=== PATIENT | female | born 1995 | race Caucasian/White ===

== ENCOUNTER 2016-11-28 15:38 | Emergency (ER) | payer BC ==
--- NOTE | 2016-11-28 19:04 | ED ---
Lower Extremity - HPI Summary HPI Summary: 21 female presents with complaints of left ankle pain after twisting and falling while walking at the dog park just prior to arrival. Patient states she was walking and not paying attention when a big husky/lab dog ran into the back of her legs, taking her legs out from under her. Patient at this times twisted her ankle and fell backwards onto her bottom/back. Fall was witnessed by her friend. Did not hit her head and no LOC. Patient denies any other pain or injury besides her left ankle. She was able to bear weight and walk. She has some ROM. Denies knee, back hip and neck pain. Patient denies vision changes, headache, abdominal pain and nausea/vomiting. No c/p, SOB. No PMHx. Admits to some swelling and bruising of left ankle. Describes pain and throbbing and aching. Denies numbness/tingling. - History of Current Complaint Chief Complaint: EDExtremityLower Stated Complaint: LEFT ANKLE PAIN Hx Obtained From: Patient Mechanism Of Injury: Fall From A Standing Position, Twisted Onset of Pain: Immediate, Post Accident Onset/Duration: Hours Severity Initially: Moderate Severity Currently: Moderate Pain Intensity: 7 Pain Scale Used: 0-10 Numeric Timing: Constant Location: Is Discrete @ - left ankle Character Of Pain: Sharp, Aching, Throbbing Associated Signs And Symptoms: Positive: Swelling, Bruising Aggravating Factor(s): Standing, Ambulation Alleviating Factor(s): Rest Able to Bear Weight: Yes - Allergies/Home Medications Allergies/Adverse Reactions: Allergies Allergy/AdvReac Type Severity Reaction Status Date / Time No Known Allergies Allergy Verified 10/13/14 06:00 PMH/Surg Hx/FS Hx/Imm Hx Endocrine/Hematology History: Denies: Hx Anticoagulant Therapy, Hx Diabetes Cardiovascular History: Denies: Hx Hypertension Respiratory History: Reports: Hx Asthma - Surgical History Surgery Procedure, Year, and Place: none - Immunization History Immunizations Up to Date: Yes Infectious Disease History: Denies: Traveled Outside the [place] in Last 30 Days - Family History Known Family History: Positive: Other - both sisters: cystic ovaries - Social History Alcohol Use: None Hx Substance Use: No Substance Use Type: Reports: None Hx Tobacco Use: No Smoking Status (MU): Never Smoked Tobacco Review of Systems Constitutional: Negative Eyes: Negative ENT: Negative Cardiovascular: Negative Respiratory: Negative Gastrointestinal: Negative Positive: Arthralgia, Myalgia, Decreased ROM, Edema - left ankle Positive: Bruising - left ankle Neurological: Negative Psychological: Normal All Other Systems Reviewed And Are Negative: Yes Physical Exam Triage Information Reviewed: Yes Vital Signs On Initial Exam: Initial Vitals Temp Pulse Resp BP Pulse Ox 98.6 F 68 18 107/67 99 11/28/16 15:44 11/28/16 15:44 11/28/16 15:44 11/28/16 15:44 11/28/16 15:44 Vital Signs Reviewed: Yes Appearance: Positive: Well-Appearing, Well-Nourished, Pain Distress - mild, sitting with ankle elevated with ice pack applied. Skin: Positive: Warm, Dry, Other - mnimal edema noted at left ankle when compared to right. minimal ecchymosis. no open wounds. Head/Face: Positive: Normal Head/Face Inspection. Negative: Scalp, Cephalohematoma Eyes: Positive: Normal, EOMI, SCOTTY, Conjunctiva Clear ENT: Positive: Normal ENT inspection, Hearing grossly normal Neck: Positive: Supple, Nontender Respiratory/Lung Sounds: Positive: Clear to Auscultation, Breath Sounds Present. Negative: Rales, Rhonchi, Wheezes Cardiovascular: Positive: Normal, RRR, Pulses are Symmetrical in both Upper and Lower Extremities - 2+ pedal b/l and radial. Negative: Murmur, Tachycardia, Leg Edema Left, Leg Edema Right Abdomen Description: Positive: Nontender, Soft Bowel Sounds: Positive: Present Musculoskeletal: Positive: Normal, Limited @ - strength and ROM with all directions due to pain, is able to move toes, and has some ROM flexion, extension, and internal/external rotation., Pain @ - left ankle, most on lateral ankle over ATFL on palpation and with movement., Edema Left - minimal of left ankle when compared to right ankle, Other - no crepitus, step off or obvious deformity noted.. Negative: Interruption @, Rome Sign Left, Rome Sign Right, Edema Right Neurological: Positive: Normal, Sensory/Motor Intact - sensation intact and normal, Alert, Oriented to Person Place, Time, Reflexes Intact, NV Bundle Intact Distally, Unable to Assess Gait - due to pain and injury Psychiatric: Positive: Normal AVPU Assessment: Alert - Maryjane Coma Scale Best Eye Response: 4 - Spontaneous Best Motor Response: 6 - Obeys Commands Best Verbal Response: 5 - Oriented Diagnostics - Vital Signs Vital Signs Temp Pulse Resp BP Pulse Ox 11/28/16 15:47 98.6 F 73 18 107/67 99 11/28/16 15:44 98.6 F 68 18 107/67 99 - Laboratory Lab Statement: Any lab studies that have been ordered have been reviewed, and results considered in the medical decision making process. - Radiology left ankle Xray Interpretation: No Acute Changes - NO RADIOGRAPHICALLY APPARENT FRACTURE OR DISLOCATION. If the patient's symptoms persist, follow-up imaging is recommended. Radiology Interpretation Completed By: Radiologist Re-Evaluation - Re-Evaluation First Eval Re-Evaluation Time: 19:33 Change: Improved - patient had some relief after ice, rest and naproxen Lower Extremity Course/Dx - Course Course Of Treatment: given naproxen while in ED for pain and inflammation. X- ray of left ankle obtained and negative for fracture or dislocation. Ice applied. Appears to have suffered a left ankle sprain. Given brace and crutches. Do not bear weight until symptoms improved and second evalution. Apply ice and continue naproxen. Follow up with PCP. Aware of worsening signs and symptoms - Diagnoses Differential Diagnosis/HQI/PQRI: Positive: Cellulitis, Contusion, Dislocation, Fracture (Closed), Sprain, Strain Provider Diagnoses: Left ankle sprain Discharge - Discharge Plan Condition: Stable Disposition: HOME Prescriptions: Naproxen TAB* [Naprosyn 375 mg TAB*] 375 mg PO BID #30 tab Patient Education Materials: Ankle Sprain (ED) Referrals: Non Staff,Doctor [Primary Care Provider] - Additional Instructions: Take prescribed medication as directed for pain and inflammation. Do not bear weight until symptoms improved and follow up with PCP. Wear brace and use crutches. Ice and elevate the ankle multiple times daily, 20 minutes on and 20 minutes off. Follow up with PCP within 2 weeks. If symptoms worsen or new symptoms develop please return or seek medical attention promptly.
[2016-11-28] MEDS ORDERED: Naproxen TAB* 250 MG PO ONE (19:06)
--- NOTE | 2016-11-28 19:30 | RAD ---
INDICATION: Left ankle pain after injury at the dog park COMPARISON: None. TECHNIQUE: 3 views of the left ankle were obtained. FINDINGS: The well corticated bones exhibit normal alignment. Joint spaces appear maintained. No fracture is seen. Well-circumscribed bony focus just posterior to the talocalcaneal joint could represent an os trigonum in the correct clinical setting. IMPRESSION: NO RADIOGRAPHICALLY APPARENT FRACTURE OR DISLOCATION. If the patient's symptoms persist, follow-up imaging is recommended.
[2016-11-28 20:27] VITALS: BP 120/52
== END 2016-11-28 19:39 | disposition home or self-care (01) ==
LOC: ED 15:38
DX: S93.402A Sprain of unspecified ligament of left ankle, initial encounter (principal); W19.XXXA Unspecified fall, initial encounter; Y92.830 Public park as the place of occurrence of the external cause; J45.909 Unspecified asthma, uncomplicated
CPT/HCPCS: 99282; A9270-GY

== ENCOUNTER 2017-07-22 13:33 | Emergency (ER) | payer SELFPAY ==
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
[2017-07-22] MEDS ORDERED: Ibuprofen TAB* 600 MG PO ONE (16:04)
[2017-07-22] MEDS ORDERED: Cyclobenzaprine TAB* 10 MG PO ONE (16:05)
[2017-07-22 16:22] VITALS: BP 106/54
== END 2017-07-22 16:20 | disposition home or self-care (01) ==
LOC: ED 13:33
DX: S06.0X0A Concussion without loss of consciousness, initial encounter (principal); S16.1XXA Strain of muscle, fascia and tendon at neck level, initial encounter; V43.52XA Car driver injured in collision with other type car in traffic accident, initial encounter; Y92.410 Unspecified street and highway as the place of occurrence of the external cause
CPT/HCPCS: 70450; 72125; 99282; A9270-GY

== ENCOUNTER 2018-07-30 20:40 | Emergency (ER) | payer OTHER ==
[2018-07-30 20:55] VITALS: BP 117/80
--- NOTE | 2018-07-30 22:12 | UC ---
Nausea/Vomiting/Diarrhea HPI - HPI Summary HPI Summary: 3 DAYS OF CRAMPY ABDOMINAL PAIN WITH COPIOUS WATERY DIARRHEA. EPISODES AT LEAST 10 TIMES DAILY. HAS HAD 2 EPISODES OF EMESIS. 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 - History of Current Complaint Chief Complaint: UCAbdominalPain Stated Complaint: ABDOMINAL PAIN, VOMITING AND DIARRHEA Time Seen by Provider: 07/30/18 21:41 Hx Obtained From: Patient Hx Last Menstrual Period: 2 wks ago Onset/Duration: Sudden Onset, Lasting Days, Still Present Timing: Constant Severity Initially: Moderate Severity Currently: Moderate Pain Intensity: 7 Pain Scale Used: 0-10 Numeric Location: Diffuse Character: Cramping Aggravating Factor(s): Food Alleviating Factor(s): Nothing Nausea/Vomiting Presence: Vomiting Diarrhea Presence: Yes Diarrhea Frequency: Every 1-2 hours Diarrhea Duration: 2-3 days Diarrhea Characteristics: Watery - Allergies/Home Medications Allergies/Adverse Reactions: Allergies Allergy/AdvReac Type Severity Reaction Status Date / Time No Known Allergies Allergy Verified 07/30/18 20:56 PMH/Surg Hx/FS Hx/Imm Hx Previously Healthy: Yes Other History Of: Negative For: Anticoagulant Therapy - Surgical History Surgical History: None Surgery Procedure, Year, and Place: none - Family History Known Family History: Positive: Other - both sisters: cystic ovaries - Social History Alcohol Use: Occasionally Substance Use Type: None Smoking Status (MU): Never Smoked Tobacco Review of Systems All Other Systems Reviewed And Are Negative: Yes Constitutional: Positive: Fatigue Respiratory: Positive: Negative Cardiovascular: Positive: Negative Gastrointestinal: Positive: Abdominal Pain, Vomiting, Diarrhea Physical Exam Triage Information Reviewed: Yes Appearance: No Pain Distress, Well-Nourished, Ill-Appearing - FATIGUED Vital Signs: Initial Vital Signs Temp 98.9 F 07/30/18 20:53 Pulse 80 07/30/18 20:53 Resp 18 07/30/18 20:53 BP 117/80 07/30/18 20:53 Pulse Ox 98 07/30/18 20:53 Vital Signs Reviewed: Yes Eyes: Positive: Conjunctiva Clear ENT: Positive: Hearing grossly normal Neck: Positive: Supple Respiratory Exam: Normal Cardiovascular Exam: Normal Abdomen Description: Positive: Soft, Other: - DIFFUSELY TENDER. NO REBOUND OR RIGIDITY. Negative: Distended, Guarding Bowel Sounds: Positive: Present Musculoskeletal: Positive: No Edema Neurological: Positive: Alert Psychological: Positive: Age Appropriate Behavior Skin: Negative: Rashes Naus/Vom/Diarrhea Course/Dx - Course Course Of Treatment: PATIENT LIKELY WITH CRYPTOSPORIDIUM GIVEN SEVERAL OF HER CLASSMATES HAVE BEEN DIAGNOSED WITH THIS CONDITION. ADVISED THAT THIS IS GENERALLY A SELF-LIMITED CONDITION AND THAT SHE SHOULD IMPROVE SPONTANEOUSLY OVER THE NEXT FEW WEEKS LONG SHE CAN STAY WELL-HYDRATED. PATIENT HAS REQUESTED A PRESCRIPTION FOR NITAZOXANIDE WHICH I PROVIDED TODAY. I HAVE ENCOURAGED HER NOT TO FILL HIS PRESCRIPTION UNTIL SHE IS SURE SHE IS NOT IMPROVING ON HER OWN. ADVISED TO GO TO THE ER IF SHE IS UNABLE TO TOLERATE FLUIDS OR IS FEELING WORSE. STOOL SENT FOR TESTING. - Differential Dx/Diagnosis Provider Diagnosis: Acute diarrhea Condition At Discharge: Stable Discharge - Sign-Out/Discharge Documenting (check all that apply): Patient Departure All imaging exams completed and their final reports reviewed: No Studies - Discharge Plan Condition: Stable Disposition: HOME Prescriptions: Nitazoxanide [Alinia] 500 mg PO BID #6 tablet Patient Education Materials: Acute Diarrhea (ED) Referrals: No Primary Care Phys,NOPCP [Primary Care Provider] - Additional Instructions: GIVEN YOUR SYMPTOMS AND KNOWN EXPOSURE TO CRYPTOSPORIDIUM THIS IS LIKELY YOUR DIAGNOSIS. YOUR STOOL HAS BEEN SENT FOR TESTING TODAY. CRYPTOSPORIDIUM IS USUALLY A SELF-LIMITED CONDITION AND YOUR SYMPTOMS SHOULD IMPROVE ON THEIR OWN OVER THE NEXT DAYS TO SEVERAL WEEKS. LONG YOU ARE ABLE TO STAY HYDRATED NO ACUTE INTERVENTION IS INDICATED. IF YOU'RE UNABLE TO TOLERATE FLUIDS YOU MAY NEED IV SUPPLEMENTATION. I WOULD RECOMMEND GOING TO THE EMERGENCY ROOM IF YOU ARE WORSENING. YOUR STOOL HAS BEEN SENT FOR TESTING PER YOUR REQUEST ALTHOUGH I RECOMMEND HOLDING OFF ON THIS UNTIL YOU KNOW YOU'RE NOT IMPROVING SPONTANEOUSLY. THIS MEDICATION IS OFTEN NOT COVERED BY INSURANCE. CLEAR LIQUIDS, BLAND DIET. AVOID CAFFEINE, DAIRY, GREASY, SPICY FOODS. ONCE YOU ARE TOLERATING CLEAR LIQUIDS YOU CAN ADVANCE TO SIMPLE, BLAND FOODS. YOU CAN TRY OTC LOPERAMIDE TO HELP WITH SYMPTOMS. - Billing Disposition and Condition Condition: STABLE Disposition: Home
--- NOTE | 2018-07-31 16:10 | UC ---
- Progress Note Progress Note: 07/31/2018 Stool culture final resport still pending, Giardia/cryptospordium pending. Fecal Lacoferrin positive Pt on Nitazoxanide prophylactically cince exposure to cryptosporidium. No change Merari Lobato PA-C Course/Dx - Diagnoses Provider Diagnoses: Acute diarrhea Discharge - Sign-Out/Discharge Documenting (check all that apply): Patient Departure - D/C home All imaging exams completed and their final reports reviewed: No Studies - Discharge Plan Condition: Stable Disposition: HOME Prescriptions: Nitazoxanide [Alinia] 500 mg PO BID #6 tablet Patient Education Materials: Acute Diarrhea (ED) Referrals: No Primary Care Phys,NOPCP [Primary Care Provider] - Additional Instructions: GIVEN YOUR SYMPTOMS AND KNOWN EXPOSURE TO CRYPTOSPORIDIUM THIS IS LIKELY YOUR DIAGNOSIS. YOUR STOOL HAS BEEN SENT FOR TESTING TODAY. CRYPTOSPORIDIUM IS USUALLY A SELF-LIMITED CONDITION AND YOUR SYMPTOMS SHOULD IMPROVE ON THEIR OWN OVER THE NEXT DAYS TO SEVERAL WEEKS. LONG YOU ARE ABLE TO STAY HYDRATED NO ACUTE INTERVENTION IS INDICATED. IF YOU'RE UNABLE TO TOLERATE FLUIDS YOU MAY NEED IV SUPPLEMENTATION. I WOULD RECOMMEND GOING TO THE EMERGENCY ROOM IF YOU ARE WORSENING. YOUR STOOL HAS BEEN SENT FOR TESTING PER YOUR REQUEST ALTHOUGH I RECOMMEND HOLDING OFF ON THIS UNTIL YOU KNOW YOU'RE NOT IMPROVING SPONTANEOUSLY. THIS MEDICATION IS OFTEN NOT COVERED BY INSURANCE. CLEAR LIQUIDS, BLAND DIET. AVOID CAFFEINE, DAIRY, GREASY, SPICY FOODS. ONCE YOU ARE TOLERATING CLEAR LIQUIDS YOU CAN ADVANCE TO SIMPLE, BLAND FOODS. YOU CAN TRY OTC LOPERAMIDE TO HELP WITH SYMPTOMS. - Billing Disposition and Condition Condition: STABLE Disposition: Home
--- NOTE | 2018-08-01 13:04 | ED ---
Progress - Progress Note Progress Note: stool left test reviewed - C. difficile PCR negative - Rest of the stool culture and studies pending at this time. - No change in the plan Course/Dx - Course Course Of Treatment: PATIENT LIKELY WITH CRYPTOSPORIDIUM GIVEN SEVERAL OF HER CLASSMATES HAVE BEEN DIAGNOSED WITH THIS CONDITION. ADVISED THAT THIS IS GENERALLY A SELF-LIMITED CONDITION AND THAT SHE SHOULD IMPROVE SPONTANEOUSLY OVER THE NEXT FEW WEEKS LONG SHE CAN STAY WELL-HYDRATED. PATIENT HAS REQUESTED A PRESCRIPTION FOR NITAZOXANIDE WHICH I PROVIDED TODAY. I HAVE ENCOURAGED HER NOT TO FILL HIS PRESCRIPTION UNTIL SHE IS SURE SHE IS NOT IMPROVING ON HER OWN. ADVISED TO GO TO THE ER IF SHE IS UNABLE TO TOLERATE FLUIDS OR IS FEELING WORSE. STOOL SENT FOR TESTING. - Diagnoses Provider Diagnoses: Acute diarrhea Discharge - Sign-Out/Discharge Documenting (check all that apply): Post-Discharge Follow Up All imaging exams completed and their final reports reviewed: No Studies - Discharge Plan Condition: Stable Disposition: HOME Prescriptions: Nitazoxanide [Alinia] 500 mg PO BID #6 tablet Patient Education Materials: Acute Diarrhea (ED) Referrals: No Primary Care Phys,NOPCP [Primary Care Provider] - Additional Instructions: GIVEN YOUR SYMPTOMS AND KNOWN EXPOSURE TO CRYPTOSPORIDIUM THIS IS LIKELY YOUR DIAGNOSIS. YOUR STOOL HAS BEEN SENT FOR TESTING TODAY. CRYPTOSPORIDIUM IS USUALLY A SELF-LIMITED CONDITION AND YOUR SYMPTOMS SHOULD IMPROVE ON THEIR OWN OVER THE NEXT DAYS TO SEVERAL WEEKS. LONG YOU ARE ABLE TO STAY HYDRATED NO ACUTE INTERVENTION IS INDICATED. IF YOU'RE UNABLE TO TOLERATE FLUIDS YOU MAY NEED IV SUPPLEMENTATION. I WOULD RECOMMEND GOING TO THE EMERGENCY ROOM IF YOU ARE WORSENING. YOUR STOOL HAS BEEN SENT FOR TESTING PER YOUR REQUEST ALTHOUGH I RECOMMEND HOLDING OFF ON THIS UNTIL YOU KNOW YOU'RE NOT IMPROVING SPONTANEOUSLY. THIS MEDICATION IS OFTEN NOT COVERED BY INSURANCE. CLEAR LIQUIDS, BLAND DIET. AVOID CAFFEINE, DAIRY, GREASY, SPICY FOODS. ONCE YOU ARE TOLERATING CLEAR LIQUIDS YOU CAN ADVANCE TO SIMPLE, BLAND FOODS. YOU CAN TRY OTC LOPERAMIDE TO HELP WITH SYMPTOMS. - Billing Disposition and Condition Condition: STABLE Disposition: Home
--- NOTE | 2018-08-02 15:06 | UC ---
- Progress Note Progress Note: Positive for Cryptosporidium as suspected at OV. Can let pt know. This is generally a self limiting condition and should improve. See Dr. Harvey's visit note for supportive care instructions. If symptoms worsening - go to ED. Course/Dx - Diagnoses Provider Diagnoses: Acute diarrhea Discharge - Sign-Out/Discharge Documenting (check all that apply): Post-Discharge Follow Up All imaging exams completed and their final reports reviewed: No Studies - Discharge Plan Condition: Stable Disposition: HOME Prescriptions: Nitazoxanide [Alinia] 500 mg PO BID #6 tablet Patient Education Materials: Acute Diarrhea (ED) Referrals: No Primary Care Phys,NOPCP [Primary Care Provider] - Additional Instructions: GIVEN YOUR SYMPTOMS AND KNOWN EXPOSURE TO CRYPTOSPORIDIUM THIS IS LIKELY YOUR DIAGNOSIS. YOUR STOOL HAS BEEN SENT FOR TESTING TODAY. CRYPTOSPORIDIUM IS USUALLY A SELF-LIMITED CONDITION AND YOUR SYMPTOMS SHOULD IMPROVE ON THEIR OWN OVER THE NEXT DAYS TO SEVERAL WEEKS. LONG YOU ARE ABLE TO STAY HYDRATED NO ACUTE INTERVENTION IS INDICATED. IF YOU'RE UNABLE TO TOLERATE FLUIDS YOU MAY NEED IV SUPPLEMENTATION. I WOULD RECOMMEND GOING TO THE EMERGENCY ROOM IF YOU ARE WORSENING. YOUR STOOL HAS BEEN SENT FOR TESTING PER YOUR REQUEST ALTHOUGH I RECOMMEND HOLDING OFF ON THIS UNTIL YOU KNOW YOU'RE NOT IMPROVING SPONTANEOUSLY. THIS MEDICATION IS OFTEN NOT COVERED BY INSURANCE. CLEAR LIQUIDS, BLAND DIET. AVOID CAFFEINE, DAIRY, GREASY, SPICY FOODS. ONCE YOU ARE TOLERATING CLEAR LIQUIDS YOU CAN ADVANCE TO SIMPLE, BLAND FOODS. YOU CAN TRY OTC LOPERAMIDE TO HELP WITH SYMPTOMS. - Billing Disposition and Condition Condition: STABLE Disposition: Home
== END 2018-07-30 22:25 | disposition home or self-care (01) ==
LOC: UCEAST 20:40
DX: R19.7 Diarrhea, unspecified (principal); R10.9 Unspecified abdominal pain; R11.10 Vomiting, unspecified
CPT/HCPCS: 83630; 87045; 87046; 87077; 87328; 87329; 87493; 87899; 99202; G0463